=== PATIENT | female | born 1980 | race Asian ===

== ENCOUNTER 2017-07-29 20:46 | Emergency (ER) | payer OTHER ==
[2017-07-29] MEDS: LIDOCAINE 1% PF 2 ML VIAL. NEB (21:14)
[2017-07-29] MEDS: ALBUTEROL SULFATE 2.5 MG/3 ML NEBU. NEB (21:14)
[2017-07-29 21:39] LABS: INFLUENZA A PATIENT NEGATIVE (NEGATIVE); INFLUENZA B PATIENT NEGATIVE (NEGATIVE); OBC FLU VALID
[2017-07-29] MEDS: HYDROcodone/CHLORPHEN POLIS 5 ML SUS.ER.12H PO (22:06)
[2017-07-30 08:37] LABS: NEGATIVE OBC STREP NEG
[2017-07-30 08:38] LABS: POSITIVE OBC STREP POS
== END 2017-07-29 22:48 | disposition home or self-care (01) ==
LOC: ER 20:46
DX: J06.9 Acute upper respiratory infection, unspecified (principal); E11.9 Type 2 diabetes mellitus without complications
CPT/HCPCS: 71046; 87070; 87804; 87804-59; 87880; 94640; 99285-25; J7613